=== PATIENT | male | born 1975 | race Caucasian/White ===

== ENCOUNTER 2017-08-09 11:58 | Emergency (ER) | payer OTHER ==
[~2017-08-09] VITALS: Ht 190.5 cm; Wt 133.8 kg
[2017-08-09] MEDS ORDERED: NAPROSYN500 MG PO (13:59)
== END 2017-08-09 14:03 | disposition home or self-care (01) ==
LOC: ED 11:58
DX: S09.90XA Unspecified injury of head, initial encounter (principal); F17.200 Nicotine dependence, unspecified, uncomplicated; M54.2 Cervicalgia; W22.8XXA Striking against or struck by other objects, initial encounter; Y93.89 Activity, other specified; Y92.89 Other specified places as the place of occurrence of the external cause; Y99.9 Unspecified external cause status